=== PATIENT | female | born 1995 | race African-American/Black ===

== ENCOUNTER 2022-10-19 12:48 | Emergency (ER) | payer OTHER ==
[~2022-10-19] VITALS: Ht 167.6 cm; Wt 91.0 kg
[2022-10-19 13:00] VITALS: BP 118/63
== END 2022-10-19 21:45 | disposition left against medical advice (07) ==
LOC: ER 12:48
DX: Z53.21 Procedure and treatment not carried out due to patient leaving prior to being seen by health care provider (principal)
CPT/HCPCS: 81025